=== PATIENT | female | born 1985 | race Caucasian/White ===

== ENCOUNTER 2021-01-01 20:56 | Emergency (ER) | payer OTHER ==
[~2021-01-01] VITALS: Ht 152.4 cm; Wt 59.0 kg
[~2021-01-01 20:56] MED LIST: BACTRIM DS TAB1 EACH PO; BUSPIRONE HCL10 MG PO; DOXYCYCLINE 10100 MG PO; FLAGYL500 MG PO; HYDROXYZINE HCL25 M1 PO; MEDROLDOSEPACK PO; NOHOMEMEDICATIONS; NORCO 5-325 TA1 EACH PO; PROPRANOLOL 20M20 M1 PO; PROZAC20 MG PO; ZOFRAN4 MG PO
[2021-01-01] MEDS ORDERED: CEPHALEXIN500 MG PO (22:18)
[2021-01-01] MEDS ORDERED: NORCO5 PO (22:18)
[2021-01-01 22:33] VITALS: BP 120/70
== END 2021-01-01 22:33 | disposition home or self-care (01) ==
LOC: M.ERS 20:56
DX: S02.2XXA Fracture of nasal bones, initial encounter for closed fracture (principal); F17.210 Nicotine dependence, cigarettes, uncomplicated; Z98.890 Other specified postprocedural states; Y08.89XA Assault by other specified means, initial encounter; Y93.89 Activity, other specified; Y92.89 Other specified places as the place of occurrence of the external cause; Y99.8 Other external cause status